=== PATIENT | female | born 2000 | race Caucasian/White ===

== ENCOUNTER 2022-02-11 15:37 | Outpatient (CLI) | payer OTHER | END 2022-02-11 15:38 | disposition home or self-care (01) | LOC: CSHRAD 15:37 | PROVIDERS: ATTEND Internal Medicine Rheumatology | DX: M46.1 Sacroiliitis, not elsewhere classified (principal); M89.8X8 Other specified disorders of bone, other site; Q76.49 Other congenital malformations of spine, not associated with scoliosis | CPT/HCPCS: 72202 ==

== ENCOUNTER 2022-03-16 10:27 | Outpatient (CLI) | payer OTHER ==
[2022-03-16] MEDS ORDERED: Magnevist 469MG/ML 20 ML VIAL ONE (13:54)
== END 2022-03-16 10:28 | disposition home or self-care (01) ==
LOC: CSHMRI 10:27
PROVIDERS: ATTEND Internal Medicine Rheumatology
DX: M45.A0 Non-radiographic axial spondyloarthritis of unspecified sites in spine (principal); Q76.49 Other congenital malformations of spine, not associated with scoliosis
CPT/HCPCS: 72197